=== PATIENT | female | born 1980 | race Caucasian/White ===

== ENCOUNTER → 2025-04-08 19:07 | Outpatient (CLI) | payer OTHER, SELFPAY ==
--- NOTE | 2025-04-08 19:11 | DI.RAD.S_ITS ---
PROCEDURE: XR FOOT RT MIN 3V INDICATIONS: Foot pain TECHNIQUE: 3 views of the foot were acquired. COMPARISON: None. FINDINGS: Bones: No fractures or dislocations. No suspicious bony lesions. Soft tissues: No tibiotalar joint effusion. Achilles tendon appears normal. IMPRESSION: No acute bony abnormality. Dictated by: Zack Oliva M.D. on 04/09/2025 at 10:57 Approved by: Zack Oliva M.D. on 04/09/2025 at 10:57
--- NOTE | 2025-04-08 19:11 | DI.RAD.S_ITS ---
PROCEDURE: XR FOOT LT MIN 3V INDICATIONS: Foot pain TECHNIQUE: 3 views of the foot were acquired. COMPARISON: None. FINDINGS: Bones: No fractures or dislocations. No suspicious bony lesions. Soft tissues: No tibiotalar joint effusion. Achilles tendon appears normal. IMPRESSION: No acute bony abnormality. Dictated by: Zack Oliva M.D. on 04/09/2025 at 10:56 Approved by: Zack Oliva M.D. on 04/09/2025 at 10:56
--- NOTE | 2025-04-08 19:11 | DI.RAD.S_ITS ---
PROCEDURE: XR ANKLE LT MIN 3V INDICATIONS: Ankle pain TECHNIQUE: 3 views of the ankle were acquired. COMPARISON: None. FINDINGS: Bones: No fractures or dislocations. Ankle mortise is normally aligned. No suspicious bony lesions. Soft tissues: No tibiotalar joint effusion. Achilles tendon appears normal. IMPRESSION: No acute bony abnormality or significant effusion. Dictated by: Zack Oliva M.D. on 04/09/2025 at 10:57 Approved by: Zack Oliva M.D. on 04/09/2025 at 10:57
--- NOTE | 2025-04-08 19:11 | DI.RAD.S_ITS ---
PROCEDURE: XR ANKLE RT MIN 3V INDICATIONS: Ankle pain TECHNIQUE: 3 views of the ankle were acquired. COMPARISON: None. FINDINGS: Bones: No fractures or dislocations. Ankle mortise is normally aligned. No suspicious bony lesions. Soft tissues: No tibiotalar joint effusion. Achilles tendon appears normal. IMPRESSION: No acute bony abnormality or significant effusion. Dictated by: Zack Oliva M.D. on 04/09/2025 at 10:57 Approved by: Zack Oliva M.D. on 04/09/2025 at 10:57
== END ==
LOC: RAD 19:10
PROVIDERS: PCP Family Medicine; Referring Provider Nurse Practitioner Family; Visit Provider Nurse Practitioner Family
DX: M25.579 Pain in unspecified ankle and joints of unspecified foot (principal)
CPT/HCPCS: 73610; 73630